=== PATIENT | female | born 1945 | race Caucasian/White ===

== ENCOUNTER 2025-11-26 17:38 | Inpatient (IN) | payer MEDICARE ==
[~2025-11-26] VITALS: Ht 152.4 cm; Wt 70.6 kg
[2025-11-26] MEDS ORDERED: ASPI81TA26 PO (17:50)
[2025-11-26] MEDS ORDERED: LETR2.5T2 PO (17:50)
[2025-11-26] MEDS ORDERED: LOSA25TA13 PO (17:50)
[2025-11-26] MEDS ORDERED: ROSU10TA90 PO (17:50)
[2025-11-26] MEDS ORDERED: LEVO25TA5 PO (17:50)
[2025-11-26] MEDS ORDERED: IBUP200T46 PO (17:50)
[2025-11-26] MEDS ORDERED: MAG100TA PO (17:50)
[2025-11-26] MEDS ORDERED: PANT40TA29 PO (17:50)
[2025-11-26] MEDS ORDERED: LEXA5TAB13 PO (17:50)
[2025-11-26] MEDS ORDERED: NOXI1TAB PO (17:50)
[2025-11-26] MEDS: ONDANSETRON 4MG/2ML VIAL IV ONE (19:24)
[2025-11-26] MEDS: MORPHINE 4 MG/ML 1 ML VIAL IV ONE ×2 (19:25→19:35)
[2025-11-26 19:28] LABS: BASO # 0.0 10^3/uL (0.0-0.2); BASO % 0.4 % (0.0-1.0); EOS # 0.1 10^3/uL (0.0-0.5); EOS % 1.6 % (0.0-3.0); LYMPH # 0.5 10^3/uL (1.5-5.0); LYMPH % 6.5 % (24.0-44.0); MONO # 0.5 10^3/uL (0.0-0.8); MONO % 7.3 % (2.0-8.0); NEUTROPHILS # 5.9 10^3/uL (1.5-8.5); NEUTROPHILS % 83.9 % (36.0-66.0); PLATELET COUNT, AUTOMATED 225 10^3/uL (150-450)
[2025-11-26 19:52] LABS: INR 0.9
[2025-11-26 19:54] LABS: CALCIUM LEVEL 9.5 MG/DL (8.3-10.6); CARBON DIOXIDE LEVEL 25.0 MMOL/L (20-31); CHLORIDE LEVEL 107.0 MMOL/L (98-107); CREATININE FOR GFR 0.92 MG/DL (0.55-1.30); GLOMERULAR FILTRATION RATE 63.3 (>39); POTASSIUM SERUM 4.4 MMOL/L (3.5-5.1); SODIUM LEVEL 143.0 MMOL/L (136-145)
[2025-11-26] MEDS ORDERED: AIRB1CHW3 PO (21:06)
[2025-11-26] MEDS ORDERED: HOME MED LIST COMPLETE! XX SCH (21:10)
[2025-11-26] MEDS ORDERED: MOM 30 ML SUSPENSION UDC PO PRN (21:35)
[2025-11-26] MEDS ORDERED: MAALOX 30 ML SUSP *UDC PO PRN (21:35)
[2025-11-26] MEDS: ROSUVASTATIN 10 MG TAB PO SCH (22:18)
[2025-11-26] MEDS: LETROZOLE 2.5 MG TAB PO SCH (22:18)
[2025-11-26 23:00] VITALS: BP 140/66; TEMP 98.5; O2SAT 99
[2025-11-26] MEDS: MORPHINE 2 MG/ML 1 ML VIAL IV ONE (23:26)
[2025-11-27] VITALS (13 sets, daily range): BP systolic 98–140; BP diastolic 49–91; TEMP 97.8–102.6; O2SAT 95–100
[2025-11-27] MEDS: ACETAMINOPHEN 325 MG TAB PO PRN (04:48)
[2025-11-27] MEDS: HYDROMORPHONE HCL 0.5 MG/0.5 ML SYRINGE IV ONE (05:00)
[2025-11-27 06:24] LABS: PLATELET COUNT, AUTOMATED 194 10^3/uL (150-450)
[2025-11-27] MEDS: KETOROLAC 30 MG/ML 1 ML VIAL IV PRN (06:44)
[2025-11-27] MEDS: LEVOTHYROXINE 25 MCG TABLET (0.025MG) PO SCH (06:44)
[2025-11-27 06:48] LABS: CALCIUM LEVEL 9.0 MG/DL (8.3-10.6); CARBON DIOXIDE LEVEL 25.0 MMOL/L (20-31); CHLORIDE LEVEL 104.0 MMOL/L (98-107); CREATININE FOR GFR 0.76 MG/DL (0.55-1.30); GLOMERULAR FILTRATION RATE 79.7 (>39); POTASSIUM SERUM 4.2 MMOL/L (3.5-5.1); SODIUM LEVEL 138.0 MMOL/L (136-145)
[2025-11-27] MEDS: LR 1,000 ML IV SCH (07:05)
[2025-11-27] MEDS ORDERED: MIDAZOLAM INJ 2 MG/2 ML VIAL As Ordered ONE (07:22)
[2025-11-27] MEDS ORDERED: LIDOCAINE 2% 100 MG/5 ML SDV (FOR ANES.) As Ordered ONE (07:23)
[2025-11-27] MEDS ORDERED: ONDANSETRON 4MG/2ML VIAL As Ordered ONE (07:23)
[2025-11-27] MEDS ORDERED: dexmedeTOMIDine (4 MCG/ML) 200 MCG/50 ML BTL As Ordered ONE (07:24)
[2025-11-27] MEDS ORDERED: ROCURONIUM BROMIDE 50MG/5ML VIAL As Ordered ONE (07:24)
[2025-11-27] MEDS ORDERED: LIDOCAINE 1% MDV 20 ML VIAL As Ordered ONE (08:09)
[2025-11-27] MEDS ORDERED: ACETAMINOPHEN 1000MG/100ML IV BAG As Ordered ONE (08:35)
[2025-11-27] MEDS: LOSARTAN 25 MG TAB PO SCH (09:00)
[2025-11-27] MEDS: ESCITALOPRAM OXALATE 5 MG TABLET PO SCH (09:00)
[2025-11-27] MEDS: PANTOPRAZOLE 40MG VIAL IV SCH (09:00)
[2025-11-27] MEDS: DOCUSATE SODIUM 100 MG CAPSULE PO SCH (09:00)
[2025-11-27] MEDS: TRANEXAMIC ACID 100 MG/ML 10ML VIAL As Ordered ONE (09:17)
[2025-11-27] MEDS: VANCOMYCIN 1000MG/20ML VIAL As Ordered ONE (09:40)
[2025-11-27] MEDS ORDERED: PHENYLephrine 500MCG 5ML (100MCG/ML) SYRINGE As Ordered ONE (10:03)
[2025-11-27] MEDS ORDERED: MORPHINE 2 MG/ML 1 ML VIAL IV PRN (10:35)
[2025-11-27] MEDS ORDERED: HYDROMORPHONE HCL 0.5 MG/0.5 ML SYRINGE IV PRN (10:35)
[2025-11-27] MEDS: MORPHINE 2 MG/ML 1 ML VIAL IV PRN (12:42)
[2025-11-27] MEDS: ONDANSETRON 4MG/2ML VIAL IV PRN (17:08)
[2025-11-27] MEDS: ceFAZolin SOD 1 GM in DEXTROSE 5% (D5W) ADV/MINI-BAG 50 ML IV SCH (17:08)
[2025-11-27] MEDS: ACETAMINOPHEN *IV* 1,000 MG in IV 1 EA IV PRN (21:22)
[2025-11-28 00:33] VITALS: TEMP 99; O2SAT 94
[2025-11-28 04:00] VITALS: TEMP 98.1; O2SAT 98
[2025-11-28 06:49] LABS: CALCIUM LEVEL 8.5 MG/DL (8.3-10.6); CARBON DIOXIDE LEVEL 25.0 MMOL/L (20-31); CHLORIDE LEVEL 105.0 MMOL/L (98-107); CREATININE FOR GFR 0.91 MG/DL (0.55-1.30); GLOMERULAR FILTRATION RATE 64.2 (>39); POTASSIUM SERUM 4.4 MMOL/L (3.5-5.1); SODIUM LEVEL 141.0 MMOL/L (136-145)
[2025-11-28 07:07] LABS: PLATELET COUNT, AUTOMATED 171 10^3/uL (150-450)
[2025-11-28] MEDS: PANTOPRAZOLE 40MG TAB PO SCH (08:48)
[2025-11-28] MEDS: OSELTAMIVIR PHOSPHATE 75 MG CAP PO ONE (08:48)
[2025-11-28 09:11] LABS: KETONE, URINE AUTO RFX NEGATIVE (NEGATIVE); LEUKOCYTE ESTERASE UR AUTO RFX 1+ (NEGATIVE); MUCUS, URINE RFX SMALL (NEGATIVE); NITRITE, URINE AUTO RFX NEGATIVE (NEGATIVE); RBC, URINE AUTO RFX 4 /HPF (0-3); SQUAM EPITHELIAL CELL UR AURFX 0 /HPF (0-6); WBC, URINE AUTO RFX 17 /HPF (0-3)
[2025-11-28] MEDS: HEPARIN SOD 5000 UNITS/ML 1 ML VIAL/SYRINGE SC SCH (09:33)
[2025-11-28 14:00] VITALS: BP 131/59; TEMP 99.3; O2SAT 92
[2025-11-28] MEDS: FOSFOMYCIN TROMETHAMINE 3 GM POWDER PACKET PO ONE (16:30)
[2025-11-28 19:57] VITALS: BP 136/65; TEMP 99.1
[2025-11-28] MEDS: OSELTAMIVIR PHOSPHATE 30MG CAPSULE PO SCH (20:06)
[2025-11-29 05:00] VITALS: BP 132/64; TEMP 98.3; O2SAT 97
[2025-11-29] MEDS ORDERED: MIRALAX *UNIT DOSE* 17 GM PACKET PO PRN (06:50)
[2025-11-29 07:43] LABS: PLATELET COUNT, AUTOMATED 175 10^3/uL (150-450)
[2025-11-29] MEDS ORDERED: LACTULOSE 20 GM/30 ML SYRUP UDC PO PRN (08:00)
[2025-11-29 15:00] VITALS: BP 96/54; TEMP 98.4; O2SAT 96
[2025-11-29 20:52] VITALS: BP 126/62; TEMP 98.2; O2SAT 97
[2025-11-30 06:02] VITALS: BP 131/60; TEMP 98; O2SAT 95
[2025-11-30 10:51] LABS: BASO # 0.0 10^3/uL (0.0-0.2); BASO % 0.5 % (0.0-1.0); EOS # 0.1 10^3/uL (0.0-0.5); EOS % 1.4 % (0.0-3.0); LYMPH # 0.7 10^3/uL (1.5-5.0); LYMPH % 18.4 % (24.0-44.0); MONO # 0.3 10^3/uL (0.0-0.8); MONO % 8.9 % (2.0-8.0); NEUTROPHILS # 2.6 10^3/uL (1.5-8.5); NEUTROPHILS % 70.5 % (36.0-66.0); PLATELET COUNT, AUTOMATED 222 10^3/uL (150-450)
[2025-11-30 11:42] LABS: CALCIUM LEVEL 9.1 MG/DL (8.3-10.6); CARBON DIOXIDE LEVEL 28.0 MMOL/L (20-31); CHLORIDE LEVEL 101.0 MMOL/L (98-107); CREATININE FOR GFR 0.71 MG/DL (0.55-1.30); GLOMERULAR FILTRATION RATE 86.4 (>39); POTASSIUM SERUM 3.8 MMOL/L (3.5-5.1); SODIUM LEVEL 139.0 MMOL/L (136-145)
[2025-11-30 16:00] VITALS: BP 173/80; TEMP 97.9; O2SAT 96
[2025-11-30] MEDS ORDERED: SENN-186 PO (17:23)
[2025-11-30] MEDS ORDERED: APAP325T4 PO (17:23)
[2025-11-30] MEDS ORDERED: ASPI81CH33 PO (17:23)
[2025-11-30] MEDS ORDERED: TRAM50TA2 PO (17:25)
[2025-11-30 20:00] VITALS: TEMP 98; O2SAT 95
[2025-12-01 07:00] LABS: PLATELET COUNT, AUTOMATED 220 10^3/uL (150-450)
[2025-12-01] MEDS ORDERED: OSEL30CA PO (07:21)
[2025-12-01 07:28] LABS: ALT/SGPT 29.0 U/L (7.0-40); AST/SGOT 41.0 U/L (<34); CALCIUM LEVEL 8.4 MG/DL (8.3-10.6); CARBON DIOXIDE LEVEL 29.0 MMOL/L (20-31); CHLORIDE LEVEL 103.0 MMOL/L (98-107); CREATININE FOR GFR 0.76 MG/DL (0.55-1.30); GLOMERULAR FILTRATION RATE 79.7 (>39); POTASSIUM SERUM 4.2 MMOL/L (3.5-5.1); SODIUM LEVEL 140.0 MMOL/L (136-145)
[2025-12-01 08:45] VITALS: BP 141/80
[2025-12-01] MEDS: ONDANSETRON 4MG TAB PO ONE (10:52)
== END 2025-12-01 10:58 | disposition home or self-care (01) | DRG 494 ==
LOC: M ED 17:38 → M ED INP 21:33 → M MS5PR 23:00
PROVIDERS: ADMIT Student in an Organized Health Care Education/Training Program; ATTEND Internal Medicine
PROC: 0QSH04Z Reposition Left Tibia with Internal Fixation Device, Open Approach (ICD-10-PCS; 2025-11-27)
PROC: 0QSK04Z Reposition Left Fibula with Internal Fixation Device, Open Approach (ICD-10-PCS; principal; 2025-11-27 08:30)
DX: S82.852A Displaced trimalleolar fracture of left lower leg, initial encounter for closed fracture (principal); I10 Essential (primary) hypertension; E78.5 Hyperlipidemia, unspecified; K21.9 Gastro-esophageal reflux disease without esophagitis; Z85.3 Personal history of malignant neoplasm of breast; E03.9 Hypothyroidism, unspecified; M54.81 Occipital neuralgia; Z79.890 Hormone replacement therapy; Z79.899 Other long term (current) drug therapy; Z88.2 Allergy status to sulfonamides; Z88.8 Allergy status to other drugs, medicaments and biological substances; W00.0XXA Fall on same level due to ice and snow, initial encounter; Y92.9 Unspecified place or not applicable; J10.1 Influenza due to other identified influenza virus with other respiratory manifestations